=== PATIENT | female | born 1960 | race Native Hawaiian/Other Pacific Islander ===

== ENCOUNTER 2018-12-17 14:46 | Outpatient (CLI) | payer OTHER | END 2018-12-17 23:47 | disposition home or self-care (01) | LOC: MAMMO 14:46 | DX: Z12.31 Encounter for screening mammogram for malignant neoplasm of breast (principal) ==

== ENCOUNTER 2019-02-19 10:53 | Day surgery (SDC) | payer OTHER ==
[2019-02-19 11:26] LABS: PLATELET COUNT 439 K/uL (152-353)
[2019-02-19 11:36] LABS: POTASSIUM 3.8 mmol/L (3.6-5.2)
== END 2019-02-19 14:50 | disposition home or self-care (01) ==
LOC: OR 10:53
PROVIDERS: Internal Medicine Gastroenterology
PROC: 0DBL8ZZ Excision of Transverse Colon, Via Natural or Artificial Opening Endoscopic (ICD-10-PCS; principal; 2019-02-19)
PROC: 0DBN8ZZ Excision of Sigmoid Colon, Via Natural or Artificial Opening Endoscopic (ICD-10-PCS; 2019-02-19)
DX: K52.9 Noninfective gastroenteritis and colitis, unspecified (principal); K57.30 Diverticulosis of large intestine without perforation or abscess without bleeding; D12.3 Benign neoplasm of transverse colon; K64.8 Other hemorrhoids; K92.1 Melena; K62.89 Other specified diseases of anus and rectum; K63.3 Ulcer of intestine
CPT/HCPCS: 80053; 83516; 85027; 85651; 86140; 86255; 86671; 94664; J2001; J2250; J2704